=== PATIENT | male | born 1995 | race Caucasian/White ===

== ENCOUNTER 2024-10-10 23:13 | Emergency (ER) | payer MEDICAID ==
[~2024-10-10] VITALS: Ht 162.6 cm; Wt 74.8 kg
[2024-10-11 00:43] LABS: PLATELET COUNT (AUTO) 231 K/uL (150-450); RED BLOOD CELL COUNT(AUTO) 5.00 MIL/uL (4.5-6.0); RED CELL DISTRIBUTION WIDTH 13.8 % (11.5-15.0); WHITE BLOOD COUNT (AUTO) 16.1 K/uL (4.3-11.0)
[2024-10-11 00:45] LABS: APPEARANCE,URINE TURBID (CLEAR); BLOOD, URINE 3+ Ery/uL (NEGATIVE); LEUKOCYTE ESTERASE ,URINE NEGATIVE (NEGATIVE); NITRITE, URINE POSITIVE (NEGATIVE); UGLUCOSE NEGATIVE (NEGATIVE)
[2024-10-11 00:47] LABS: ADD URINE CULTURE YES; SQUAMOUS EPITHELIAL CELL,UR Rare /HPF (None Seen)
[2024-10-11 00:55] LABS: ASPARTATE AMINOTRANSFERASE 14.0 U/L (15-37); CALCIUM, SERUM 8.8 mg/dL (8.5-10.1); CREATININE 0.7 mg/dL (0.6-1.3); SODIUM SERUM 138.0 mmol/L (136-145); TOTAL PROTEIN, SERUM 7.5 g/dL (6.4-8.2); UREA NITROGEN, BLOOD 18.0 mg/dL (7-18)
[2024-10-11] MEDS ORDERED: CEPH-570 PO (02:01)
[2024-10-11] MEDS ORDERED: TAMS-12 PO (02:01)
[2024-10-11] MEDS: TAMSULOSIN 0.4 MG CAP.SR.24H PO ONE (02:08)
[2024-10-11] MEDS: CEPHALEXIN MONOHYDRATE 500 MG CAPSULE PO ONE (02:08)
[2024-10-11 02:42] VITALS: BP 105/70; TEMP 98; O2SAT 99
== END 2024-10-11 02:42 | disposition home or self-care (01) ==
LOC: ER 23:19
DX: N20.0 Calculus of kidney (principal); N39.0 Urinary tract infection, site not specified; R11.2 Nausea with vomiting, unspecified
CPT/HCPCS: 36415; 80053-TC; 81001; 83735-TC; 85025-TC; 87086-TC